=== PATIENT | male | born 1940 | race African-American/Black ===

== ENCOUNTER → 2016-06-10 | Outpatient (CLI) | payer OTHER | LOC: HYPER 06-03 12:07 | DX: E11.622 Type 2 diabetes mellitus with other skin ulcer (principal); L97.811 Non-pressure chronic ulcer of other part of right lower leg limited to breakdown of skin; L97.821 Non-pressure chronic ulcer of other part of left lower leg limited to breakdown of skin; E11.51 Type 2 diabetes mellitus with diabetic peripheral angiopathy without gangrene; I10 Essential (primary) hypertension; I25.2 Old myocardial infarction; Z85.46 Personal history of malignant neoplasm of prostate; Z87.891 Personal history of nicotine dependence ==

== ENCOUNTER → 2016-07-01 | Outpatient (CLI) | payer OTHER | LOC: CAT 10:30 | PROVIDERS: Nuclear Medicine Nuclear Cardiology | DX: I73.9 Peripheral vascular disease, unspecified (principal); N32.9 Bladder disorder, unspecified ==

== ENCOUNTER → 2020-07-04 | Outpatient (CLI) | payer OTHER | LOC: HYPER 12:24 | PROVIDERS: ATTEND Emergency Medicine | DX: E11.622 Type 2 diabetes mellitus with other skin ulcer (principal); L97.821 Non-pressure chronic ulcer of other part of left lower leg limited to breakdown of skin; L84 Corns and callosities; I82.503 Chronic embolism and thrombosis of unspecified deep veins of lower extremity, bilateral; E11.51 Type 2 diabetes mellitus with diabetic peripheral angiopathy without gangrene; H91.90 Unspecified hearing loss, unspecified ear; I10 Essential (primary) hypertension; I25.2 Old myocardial infarction; K21.9 Gastro-esophageal reflux disease without esophagitis; I87.2 Venous insufficiency (chronic) (peripheral); Z85.46 Personal history of malignant neoplasm of prostate; Z95.828 Presence of other vascular implants and grafts; Z87.891 Personal history of nicotine dependence ==